=== PATIENT | male | born 2000 | race Caucasian/White ===

== ENCOUNTER → 2024-07-23 | Outpatient (CLI) | payer OTHER, SELFPAY ==
[2024-07-23 12:36] LABS: Erythrocyte Sedimentation Rate 2 mm/hr (0-20)
[2024-07-23 12:39] LABS: Absolute Lymphocyte Count 2.34 X10^3/uL (0.83-4.51); Absolute Neutrophil Count 4.1 X10^3/uL (2.0-7.7); Basophil# 0.05 X10^3/uL; Basophil% 0.7 % (0-1); Eosinophil# 0.12 X10^3/uL; Eosinophils% 1.7 % (0-5); Hematocrit 49.5 % (40-54); Hemoglobin 16.9 g/dL (13.0-16.5); Lymphocyte # 2.34 X10^3/ul (0.83-4.51); Lymphocyte % 32.5 % (19-41); Mean Corp Hgb Conc 34.1 g/dL (32-36); Mean Corpuscular Hgb 28.7 pg (27.0-32.0); Mean Platelet Vol. 10.6 fl (6.2-12.0); Monocyte# 0.55 X10^3/uL; Monocyte% 7.6 % (0-10); NRBC Flagged by Analyzer 0 % (0-5); Neutrophil % 57.1 % (47-70); Platelet Count 269 K/mm3 (150-450); RBC Distribution Width CV 13.1 % (11.6-14.6); RBC Distribution Width SD 39.8 fl (35.1-43.9); Red Blood Count 5.89 M/mm3 (4.6-6.2); White Blood Count 7.2 K/mm3 (4.4-11.0)
[2024-07-23 13:59] LABS: ALB/GLOB Ratio 1.2 RATIO (0.9-2.4); AST(SGOT) 23 U/L (15-37); Alanine Aminotransfer ALT/SGPT 61 U/L (16-61); Albumin, Serum 4.3 g/dL (3.2-5.0); Alkaline Phosphatase 79 U/L (45-117); Anion Gap 8 (5-15); BUN 14 mg/dL (7-18); BUN/Creat Ratio 16.9 RATIO (10-20); CPK Total, Creatine Kinase 235 U/L (39-308); CRP < 2.90 mg/L (0.0-3.0); Calcium,Total 10.1 mg/dL (8.5-10.1); Chloride 104 mmol/L (98-107); Creatinine, Serum 0.83 mg/dL (0.70-1.30); EST Glomerular Filtration Rate 124 mL/min (>60); Est Glom Filt Rate - Afr Amer 150 mL/min (>60); Globulin 3.6 g/dL (2.2-4.2); Glucose 86 mg/dL (74-106); Potassium 3.7 mmol/L (3.5-5.1); Protein, Total 7.9 g/dL (6.4-8.2); Sodium Level 138 mmol/L (136-145)
[2024-07-25 15:07] LABS: Albumin 4.1 g/dL (2.9-4.4); Alpha-1-Globulins 0.2 g/dL (0.0-0.4); Alpha-2-Globulins 0.9 g/dL (0.4-1.0); Gamma Globulin 0.7 g/dL (0.4-1.8); Immunoglobulin A 22 mg/dL (90-386); Immunoglobulin G 747 mg/dL (603-1613); Immunoglobulin M 56 mg/dL (20-172)
== END | disposition home or self-care (01) ==
DX: G37.3 Acute transverse myelitis in demyelinating disease of central nervous system (principal); R26.9 Unspecified abnormalities of gait and mobility; R90.89 Other abnormal findings on diagnostic imaging of central nervous system
CPT/HCPCS: 36415; 80053; 82550; 82784; 84165; 85025; 85652; 86140; 86334

== ENCOUNTER 2024-07-30 11:37 | Emergency (ER) | payer OTHER, SELFPAY ==
[2024-07-30 11:38] VITALS: BP 148/98; PULSE 104; RESP 20; TEMP 36.7; O2SAT 98; BMI 40.3
[2024-07-30 15:38] VITALS: BP 154/100; PULSE 87; RESP 22; O2SAT 95
--- NOTE | 2024-07-30 15:59 | EX.ED.DYSGE1 ---
HPI History of Present Illness Chief Complaint: Other, Pain/Inj Informant: patient Narrative Narrative: 23-year-old male presenting to the emergency room with a chief complaint of worsening lower extremity weakness. The patient states that he is following with [facility]. In May he became ill with a febrile illness, most likely to be viral but had complications of ear infection and sinusitis treated with antibiotics. He states that following this he developed bilateral leg and arm weakness. The arms slowly improved but the legs have remained weak and he is now using a cane. 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 He states that he is scheduled for MRIs of his spine to further evaluate this. He states that the working diagnosis is transverse myelitis. He denies any fever or rash. No bowel or bladder dysfunction. He reports that 2 days ago the elevator was not working in the building that he is currently residing in. This resulted in him having to climb 1 flight of stairs. He states that following that climb his legs feel significantly worse. He states he decided to give it a day but it did not improve so he called the neurologist office who advised him to come to emergency. PFSH COUNT INCLUDES THE [facility] Home Medications ?Medication ?Instructions ?Recorded ?Last Taken ?Type multivitamin (Multiple Vitamins 1 tab PO QDAY 07/23/24 Unknown History tablet) Allergy/AdvReac Type Severity Reaction Status Date / Time cefaclor (From [facility]) Allergy Hives Verified 07/30/24 11:41 soy Allergy Anaphylaxis Verified 07/30/24 11:41 Family History Mother Hypertension Father Obesity Social History current occupational status: student Smoking Status: Never smoker alcohol intake: never caffeine: Yes Type: coffee Number of servings: 2 ROS ROS ED Constitutional Constitutional ED: Denies chills, fever(s) or weight loss Eyes Eyes: Denies change in vision or diplopia ENT ENT ED: Denies ear pain, rhinorrhea or sore throat Cardiovascular Cardiovascular: Denies chest pain, orthopnea, palpitations or racing heartbeat Respiratory/Chest Respiratory/Chest: Denies cough, dyspnea or orthopnea Gastrointestinal Gastrointestinal: Denies abdominal pain, diarrhea, nausea or vomiting Genitourinary Genitourinary ED: Denies dysuria, hematuria or urinary frequency Musculoskeletal Musculoskeletal: Denies arthralgias or myalgias Integumentary Denies abscess or rash Neurologic Neurologic: Reports weakness; Denies headache(s) Psychiatric Psychiatric: Denies anxiety, depression, suicidal ideation or suicidal thoughts Endocrine Endocrinology: Denies polydipsia, polyphagia or polyuria Allergic/Immunologic Allergic/Immunologic ED: Denies mouth swelling, tongue swelling or urticaria EXAM Physical Exam Narrative Exam Narrative: Patient is able to move easily around the bed. Const Vital Signs: 07/30/24 11:38 07/30/24 15:38 Temperature 98.1 F Temperature Source Oral Pulse Rate 104 H 87 Respiratory Rate 20 H 22 H Blood Pressure 148/98 H 154/100 H Blood Pressure Mean 114 118 Pulse Ox 98 95 Oxygen Delivery Method Room Air Positive well nourished, well developed and obese General Appearance ED: well developed and NAD Nutritional Appearance: obese HEENT Reports normocephalic, head/scalp atraumatic and moist mucous membranes Eyes PERRL and EOMs intact bilaterally Neck no lymphadenopathy, supple and no JVD Resp normal respiratory effort and clear to auscultation bilaterally Cardio regular rate, regular rhythm and no murmurs GI normal to inspection, nondistended, normoactive bowel sounds and non-tender Palpation: soft Back/Spine no CVA tenderness and normal ROM Extremity normal to inspection General Extremety ED: Negative for edema General Extremity: Negative for edema Neuro oriented x3 and CN's II-XII intact bilaterally Neuro Narrative: Patient is able to sit on the side of the bed with the thighs up off the bed without difficulty. I am not able to elicit a patellar reflex bilaterally. Given he states he can feel me touching both legs in the thighs the legs and the tops of the feet equally. Ambulates weakly with a cane Sensorium / Orientation: alert Psych mental status grossly normal Mood & Affect: Negative for depressed or tearful Skin no rashes or lesions noted and no wounds MDM MDM MDM Narrative Medical decision making narrative: Differential diagnosis includes anemia electrolyte abnormalities rhabdomyolysis neuropathy transverse myelitis and a multitude of possible neurologic/spinal cord issues. Patient is able to ambulate to the bathroom with his cane. His labs are rather unremarkable including a normal CRP and sed rate. Given the fact he does not have fever elevated white count elevated sed rate or CRP he is not having any current back pain I do not feel that emergent MRI is needed. He has follow-up with his neurologist on Sunday. Spoke with the patient and using shared decision making we agreed the patient can be discharged home follow-up. He will monitor his symptoms return if worsening or concerns. I offered my support to him that he should continue to work with his doctors try to find a resolution to this perplexing medical condition. History & Record Review Discussion w/independent historian: Patient Lab Data Attestation: I reviewed the patient's lab results. Labs: Laboratory Results - last 24 hr 07/30/24 16:10 WBC 7.4 RBC 5.79 Hgb 16.6 H Hct 48.4 MCV 83.6 MCH 28.7 MCHC 34.3 RDW Std Deviation 39.7 RDW Coeff of Wero 13.1 Plt Count 271 MPV 9.8 Immature Gran % (Auto) 0.400 Neut % (Auto) 55.8 Lymph % (Auto) 35.8 [place] % (Auto) 6.5 Eos % (Auto) 1.1 Baso % (Auto) 0.4 Absolute Neuts (auto) 4.2 Absolute Lymphs (auto) 2.66 Nucleated RBC % 0 ESR 9 Sodium 140 Potassium 4.1 Chloride 107 Carbon Dioxide 27.0 Anion Gap 6 BUN 15 Creatinine 0.84 Estim Creat Clear Calc 204.99 Est GFR (MDRD) Af Amer 148 Est GFR (MDRD) Non-Af 122 BUN/Creatinine Ratio 17.9 Glucose 97 Calcium 9.5 Magnesium 2.2 Total Bilirubin 0.80 Direct Bilirubin 0.19 AST 20 ALT 52 Alkaline Phosphatase 73 Total Creatine Kinase 144 C-React Prot Ext Range < 2.90 Total Protein 7.6 Albumin 4.2 Globulin 3.4 Discharge Plan Triage Chief Complaint: Other, Pain/Inj ED Provider: Reagan Costello Dx/Rx/DC Orders Clinical Impression: Bilateral leg weakness Instructions: ED Weakness (Uncertain Cause) Prescriptions: No Action multivitamin [Multiple Vitamins] Tablet 1 tab PO QDAY Primary Care Provider: THANH SANCHEZ Referrals: THANH SANCHEZ [Other] Activity Restrictions/Additional Instructions: Please follow-up with your neurologist as scheduled on Sunday. Print Language: Arabic Disposition Disposition: Home, Self Care
[2024-07-30 16:19] LABS: Absolute Lymphocyte Count 2.66 X10^3/uL (0.83-4.51); Absolute Neutrophil Count 4.2 X10^3/uL (2.0-7.7); Basophil# 0.03 X10^3/uL; Basophil% 0.4 % (0-1); Eosinophil# 0.08 X10^3/uL; Eosinophils% 1.1 % (0-5); Hematocrit 48.4 % (40-54); Hemoglobin 16.6 g/dL (13.0-16.5); Lymphocyte # 2.66 X10^3/ul (0.83-4.51); Lymphocyte % 35.8 % (19-41); Mean Corp Hgb Conc 34.3 g/dL (32-36); Mean Corpuscular Hgb 28.7 pg (27.0-32.0); Mean Corpuscular Volume 83.6 fL (80-94); Mean Platelet Vol. 9.8 fl (6.2-12.0); Monocyte# 0.48 X10^3/uL; Monocyte% 6.5 % (0-10); NRBC Flagged by Analyzer 0 % (0-5); Neutrophil # 4.16 X10^3/uL (2.7-7.7); Neutrophil % 55.8 % (47-70); Platelet Count 271 K/mm3 (150-450); RBC Distribution Width CV 13.1 % (11.6-14.6); RBC Distribution Width SD 39.7 fl (35.1-43.9); Red Blood Count 5.79 M/mm3 (4.6-6.2); White Blood Count 7.4 K/mm3 (4.4-11.0)
[2024-07-30 16:25] LABS: Erythrocyte Sedimentation Rate 9 mm/hr (0-20)
[2024-07-30 16:50] LABS: Mucous, Urine 0 SEEN /hpf (<or=2+); Squamous Epithelial Cells - UA 0 SEEN /hpf (0-5)
[2024-07-30 16:55] LABS: AST(SGOT) 20 U/L (15-37); Alanine Aminotransfer ALT/SGPT 52 U/L (16-61); Albumin, Serum 4.2 g/dL (3.2-5.0); Alkaline Phosphatase 73 U/L (45-117); Anion Gap 6 (5-15); BUN 15 mg/dL (7-18); BUN/Creat Ratio 17.9 RATIO (10-20); Bilirubin, Direct 0.19 mg/dL (0.00-0.30); CRP < 2.90 mg/L (0.0-3.0); Calcium,Total 9.5 mg/dL (8.5-10.1); Chloride 107 mmol/L (98-107); Creatinine, Serum 0.84 mg/dL (0.70-1.30); EST Glomerular Filtration Rate 122 mL/min (>60); Est Glom Filt Rate - Afr Amer 148 mL/min (>60); Estimated Creatinine Clearance 204.99 ml/min; Globulin 3.4 g/dL (2.2-4.2); Glucose 97 mg/dL (74-106); Magnesium 2.2 mg/dL (1.6-2.6); Potassium 4.1 mmol/L (3.5-5.1); Protein, Total 7.6 g/dL (6.4-8.2); Sodium Level 140 mmol/L (136-145)
[2024-07-30 16:59] LABS: CPK Total, Creatine Kinase 144 U/L (39-308)
[2024-07-30 17:15] LABS: Color, Urine Yellow (Yellow); Glucose, Dipstick Normal (Normal); Ketone-Dipstick Negative (Negative); Leukocyte Esterase-Dipstick Negative /ul (Negative); Nitrite-Dipstick Negative (Negative); Occult Blood-Urine 10 /ul (Negative); Protein-Dipstick 15 mg/dl (Negative); Specific Gravity, Urine 1.025 (1.002-1.030); Urine Bilirubin Dipstick Negative (Negative); Urine Clarity Clear (Clear); Urine Urobilinogen Normal (Normal)
[2024-07-30 17:43] LABS: Bacteria RARE /hpf (None Seen); Red Blood Cells-Urine 0-5 SEEN /hpf (0-5); White Blood Cells 0-5 SEEN /hpf (0-5)
== END 2024-07-30 17:41 | disposition home or self-care (01) ==
PROVIDERS: Emergency Provider Emergency Medicine; Visit Provider Emergency Medicine
DX: R29.898 Other symptoms and signs involving the musculoskeletal system (principal)
CPT/HCPCS: 80048; 80076; 81001; 82550; 83735; 85025; 85652; 86140; 99283

== ENCOUNTER → 2024-08-13 | Outpatient (CLI) | payer OTHER, SELFPAY | END | disposition home or self-care (01) | LOC: SL 08:05 | DX: G47.30 Sleep apnea, unspecified (principal) | CPT/HCPCS: 95806 ==

== ENCOUNTER → 2024-08-28 | Outpatient (CLI) | payer OTHER, SELFPAY ==
--- NOTE | 2024-08-28 10:34 | MRI_ITS ---
PROCEDURE: BRAIN W/WO CONTRAST REASON FOR EXAM: Demyelinating disease TECHNIQUE: Multi sequence multiplanar MR images of the brain were obtained before and after the administration of intravenous contrast. COMPARISON: None. FINDINGS: No diffusion restriction to suggest acute/subacute ischemia. No evidence of acute intracranial hemorrhage, midline shift or mass effect. No parenchymal signal abnormalities. Cavum vergae. No hydrocephalus. Cerebral volume is age-appropriate. No chronic microhemorrhage. No pathologic enhancement. Globes are intact. Paranasal sinuses and mastoid air cells are relatively clear. No tonsillar ectopia. MRI/Brain W/WO Contrast IMPRESSION: No acute process, parenchymal signal abnormality or pathologic enhancement. Reading Location: [facility]
--- NOTE | 2024-08-28 10:34 | MRI_ITS ---
PROCEDURE: MRI cervical spine without and with IV contrast REASON FOR EXAM: Pain, demyelinating disease TECHNIQUE: Multisequence multiplanar MR images of the cervical spine were obtained before and after the administration of intravenous contrast. COMPARISON: None. FINDINGS: Vertebral body heights are within normal limits. Negative for fracture or marrow replacement. Alignment is intact. Spinal cord is of normal caliber, contour and signal intensity. No pathologic enhancement or paraspinal mass. C2-3: No focal disc abnormality, spinal stenosis or foraminal narrowing. C3-4: No focal disc abnormality or spinal stenosis. Mild right uncovertebral arthrosis. Mild right foraminal narrowing. C4-5: No focal disc abnormality, spinal stenosis or foraminal narrowing. C5-6: No focal disc abnormality, spinal stenosis or foraminal narrowing. C6-7: No focal disc abnormality, spinal stenosis or foraminal narrowing. C7-T1: No focal disc abnormality, spinal stenosis or foraminal narrowing. MRI/Spine Cervical W/WO Contrast IMPRESSION: 1. Normal cord signal. No suspicious enhancement. 2. No focal disc abnormality or spinal stenosis. Acquired mild right foraminal narrowing at C3-4. Reading Location: [facility]
--- NOTE | 2024-08-28 10:34 | MRI_ITS ---
PROCEDURE: MRI thoracic spine without and with IV contrast REASON FOR EXAM: Demyelinating disease, post viral illness TECHNIQUE: Thoracic spine MRI without and with intravenous gadolinium-based contrast. COMPARISON: None. FINDINGS: Negative for acute fracture or marrow replacement. Mild chronic wedging of the anterior T8 vertebral body. Accentuated lower thoracic kyphosis. No significant disc herniation or spinal stenosis. Mild lower thoracic facet arthrosis and ligamentum flavum hypertrophy. No significant foraminal narrowing. Spinal cord is of normal caliber, contour and signal intensity. No pathologic enhancement. Mild paraspinal muscle atrophy without evidence of mass. MRI/Spine Thoracic W/WO Contrast IMPRESSION: 1. No suspicious cord signal abnormality or pathologic enhancement. 2. No significant disc abnormality, spinal stenosis or foraminal narrowing. 3. Mild degenerative changes of the lower thoracic spine with accentuated thora cic kyphosis. Reading Location: [facility]
--- NOTE | 2024-08-28 10:34 | MRI_ITS ---
PROCEDURE: MRI lumbar spine without and with IV contrast REASON FOR EXAM: Post viral infection, demyelination TECHNIQUE: Multisequence multiplanar MR images of the lumbar spine were obtained before and after the administration of intravenous contrast. COMPARISON: None. FINDINGS: Vertebral body heights are within normal limits. No significant malalignment. Negative for fracture or marrow replacement. Conus medullaris is within normal limits and terminates at L1. No pathologic enhancement. No paraspinal mass. L1-2: No focal disc abnormality, spinal stenosis or foraminal narrowing. L2-3: No focal disc abnormality, spinal stenosis or foraminal narrowing. L3-4: No focal disc abnormality, spinal stenosis or foraminal narrowing. L4-5: No focal disc abnormality, spinal stenosis or foraminal narrowing. L5-S1: No focal disc abnormality, spinal stenosis or foraminal narrowing. Mild bilateral facet arthropathy. MRI/Spine Lumbar W/WO Contrast IMPRESSION: 1. No pathologic enhancement. 2. No focal disc abnormality, spinal stenosis or foraminal narrowing. One or more dose reduction techniques were used (e.g., Automated exposure contr ol, adjustment of the mA and/or kV according to patient size, use of iterative reconstruction technique). Reading Location: [facility]
== END | disposition home or self-care (01) ==
LOC: MRI 10:20
DX: G37.3 Acute transverse myelitis in demyelinating disease of central nervous system (principal); R26.9 Unspecified abnormalities of gait and mobility; R90.89 Other abnormal findings on diagnostic imaging of central nervous system; G50.1 Atypical facial pain
CPT/HCPCS: 70553; 72156; 72157; 72158; A9575

== ENCOUNTER → 2024-08-29 | Outpatient (CLI) | payer OTHER, SELFPAY | END | disposition home or self-care (01) | LOC: SL 15:08 | DX: G47.30 Sleep apnea, unspecified (principal) | CPT/HCPCS: 95806 ==